=== PATIENT | female | born 1995 | race Caucasian/White ===

== ENCOUNTER → 2017-01-18 | Outpatient (CLI) | payer OTHER, MEDICAID ==
--- NOTE | 2017-01-25 15:40 | Diagnostic Imaging Report ---
INDICATION: anatomical survey. TECHNIQUE: Multiple real-time grayscale images were obtained over the gravid uterus. COMPARISON: None. FINDINGS: Single live intrauterine is demonstrated at 21 weeks 6 days by today's sonographic measurements. EDC by today's ultrasound is 05/25/2017. presentation is breech. Normal amniotic fluid index. Grade 1 placenta is located posteriorly with no placenta previa. heart rate measures 155 beats per minute. Good visualization of the kidneys, bladder, stomach, brain, four-chamber heart, three-vessel cord and insertion, spine, and extremities. The cervix measures 4.2 cm in length. gender is male. Biometrical measurements are as follows: Biparietal 5.30 cm, age 22 weeks 1 days. Head circumference 19.88 cm, age 22 weeks 1 days. Abdominal circumference 16.52 cm, age 21 weeks 4 days. Femur length 3.49 cm, age 21 weeks 1 days. Sonographic estimate age: 21 weeks 6 days. Sonographic estimated date of delivery: 05/25/2017. Estimated Weight: 422 gm (+/- 62 gm). LMP percentile: 43%. heart rate: 155 beats per minute. Cervical length: 4.2 cm. number: 1 of 1. IMPRESSION: Single live intrauterine at 21 weeks 6 days by sonographic measurements. Normal anatomical survey. Dictated by: Dictated on workstation # [id number]
== END ==
LOC: RAD 14:21
PROVIDERS: ATTEND Obstetrics & Gynecology
DX: O46.92 Antepartum hemorrhage, unspecified, second trimester (principal); Z3A.00 Weeks of gestation of pregnancy not specified

== ENCOUNTER → 2020-02-12 | Outpatient (CLI) | payer BC ==
--- NOTE | 2020-02-12 12:05 | Diagnostic Imaging Report ---
PATIENT HISTORY: CHEST WALL pain. TECHNIQUE: Two views of the chest. COMPARISON: None FINDINGS: The lung volumes are normal. No focal consolidation is seen. No large pleural effusion or pneumothorax is seen. The cardiomediastinal silhouette is normal in size and contour. No acute osseous abnormality is seen. IMPRESSION: No acute pulmonary abnormality seen. Dictated by: Dictated on workstation # [id number]
--- NOTE | 2020-02-12 12:06 | Diagnostic Imaging Report ---
HISTORY: Shoulder and neck pain. TECHNIQUE: 3 views of the cervical spine. COMPARISON: None FINDINGS: Vertebral body heights are preserved. Disc heights are preserved. No acute fracture is seen. Alignment appears normal. Prevertebral soft tissues appear normal. C1-C2 alignment is normal. IMPRESSION: 1. No acute or significant osseous abnormality is seen in the cervical spine. Dictated by: Dictated on workstation # [id number]
== END ==
LOC: RAD FS 11:40
PROVIDERS: ATTEND Nurse Practitioner Family
DX: R20.2 Paresthesia of skin (principal); M25.519 Pain in unspecified shoulder; M54.2 Cervicalgia; R20.0 Anesthesia of skin; R07.89 Other chest pain
CPT/HCPCS: 71046; 72040

== ENCOUNTER → 2020-04-07 | Outpatient (CLI) | payer BC ==
--- NOTE | 2020-04-07 16:44 | Diagnostic Imaging Report ---
INDICATION: Chronic left wrist pain. The patient has history of ganglion cyst. TIME OF EXAM: 3:10 PM 3 views of the left wrist were obtained. Distal radius and ulna are intact. The carpus is intact. Metacarpals are unremarkable. No fractures are seen. IMPRESSION: No acute bony abnormality is detected. Dictated by: Dictated on workstation # [id number]
== END ==
LOC: RAD FS 14:37
PROVIDERS: ATTEND Nurse Practitioner
DX: M25.532 Pain in left wrist (principal); G89.29 Other chronic pain
CPT/HCPCS: 73110

== ENCOUNTER 2020-06-16 17:47 | Emergency (ER) | payer BC ==
[~2020-06-16] VITALS: Ht 160 cm; Wt 83.0 kg
--- NOTE | 2020-06-16 18:03 | ED Abdominal Pain ---
General Chief Complaint: OB < 20 WEEKS Stated Complaint: NAUSEA,HEADACHE Source of Information: Patient Exam Limitations: No Limitations History of Present Illness Date Seen by Provider: Jun 16, 2020 Time Seen by Provider: 18:03 Initial Comments 24-year-old multipara at 9 weeks presents to the ER ambulatory with complaint of nausea and vomiting persistent and unable to hold anything down for the past several weeks. States she's lost 6 pounds during this . Has seen her OB and was told to take [id number] B6 and Unisom, the patient has not taken it because it makes her too tired. Has an appointment to see her OB tomorrow. Denies abdominal pain or cramping, denies vaginal bleeding. Allergies and Home Medications Allergies Coded Allergies: No Allergy Information Available (Unverified , 06/16/20) Patient Home Medication List Home Medication List Reviewed: Yes Review of Systems Review of Systems Constitutional: No chills, No dizziness, No fever; malaise; No weakness Respiratory: Denies Cough, Denies Shortness of Air Cardiovascular: Denies Chest Pain, Denies Edema Gastrointestinal: Denies Abdominal Pain, Denies Constipated, Denies Diarrhea, Denies Difficulty Swallowing; Nausea, Poor Appetite, Vomiting Genitourinary: Denies Flank Pain, Denies Pain, Denies Urgency Musculoskeletal: No back pain, No joint pain Skin: No change in color, No rash Past Qqijgrf-Yapkdy-Owosbg Hx Past Med/Social Hx: Reviewed Nursing Past Med/Soc Hx Patient Social History Recent Foreign Travel: No Contact w/Someone Who Travel: No Physical Exam Vital Signs Vital Signs - First Documented 06/16/20 17:50 Temp 36.5 Pulse 87 Resp 16 B/P (MAP) 126/87 (100) Pulse Ox 98 O2 Delivery Room Air Capillary Refill : Height/Weight/BMI Height: '" Weight: lbs. oz. kg; BMI Method: General Appearance: WD/WN, no apparent distress Respiratory: chest non-tender, lungs clear Cardiovascular: regular rate, rhythm, no edema Gastrointestinal: non tender, soft Neurologic/Psychiatric: alert, normal mood/affect Skin: normal color, warm/dry Progress/Results/Core Measures Results/Orders My Orders Orders - ROVENSTINEPEYTON DO Ns Iv 1000 Ml (Sodium Chloride 0.9%) (06/16/20 18:15) Vital Signs/I&O 06/16/20 17:50 Temp 36.5 Pulse 87 Resp 16 B/P (MAP) 126/87 (100) Pulse Ox 98 O2 Delivery Room Air Departure Impression Primary Impression: Hyperemesis gravidarum Disposition: 01 HOME, SELF-CARE Condition: Improved Departure-Patient Inst. Referrals: CURLY SUAREZ APRN (PCP) Primary Care Physician GEORGE LONG DO (Family) Primary Care Physician Patient Instructions: Nausea and Vomiting of (DC) Add. Discharge Instructions: Keep your appointment to see your OB tomorrow as scheduled. All discharge instructions reviewed with patient and/or family. Voiced understanding. PEYTON MILLER DO Jun 16, 2020 18:03
[2020-06-16] MEDS ORDERED: NS IV 1000 ML 1,000 ML IV SCH (18:15)
[2020-06-16 18:20] LABS: MEAN CORPUSCULAR HEMOGLOBIN 28 PG (25-34); WHITE BLOOD COUNT 10.6 10^3/uL (4.3-11.0)
[2020-06-16 18:21] LABS: BASOPHILS % (AUTO) 0 % (0-10); EOSINOPHILS # (AUTO) 0.1 10^3/uL (0.0-0.3); EOSINOPHILS % (AUTO) 1 % (0-10); HEMATOCRIT 38 % (35-52); LYMPHOCYTES # (AUTO) 2.4 X 10^3 (1.0-4.0); LYMPHOCYTES % (AUTO) 22 % (12-44); MEAN CORPUSCULAR HGB CONC 34 G/DL (32-36); MEAN CORPUSCULAR VOLUME 81 FL (80-99); MEAN PLATELET VOLUME 8.5 FL (7.4-10.4); MONOCYTES # (AUTO) 0.6 X 10^3 (0.0-1.0); MONOCYTES % (AUTO) 5 % (0-12); NEUTROPHILS # (AUTO) 7.5 X 10^3 (1.8-7.8); NEUTROPHILS % (AUTO) 71 % (42-75); PLATELET COUNT 376 10^3/uL (130-400)
[2020-06-16 18:32] LABS: ALANINE AMINOTRANSFERASE 10 U/L (0-55); ALBUMIN 4.4 GM/DL (3.2-4.5); ALKALINE PHOSPHATASE 68 U/L (40-136); BILIRUBIN,TOTAL 0.4 MG/DL (0.1-1.0); BUN/CREATININE RATIO 7; CALCIUM 9.3 MG/DL (8.5-10.1); CARBON DIOXIDE 23 MMOL/L (21-32); CHLORIDE 100 MMOL/L (98-107); CREATININE SERUM 0.57 MG/DL (0.60-1.30); GFR ESTIMATED > 60; GLUCOSE 93 MG/DL (70-105); POTASSIUM 4.1 MMOL/L (3.6-5.0); SODIUM 134 MMOL/L (135-145); TOTAL PROTEIN 7.3 GM/DL (6.4-8.2)
--- NOTE | 2020-06-16 18:47 | NUR ---
PT HAS APPX 400CC FLUIDS LEFT. REPORT GIVEN TO STEFAN ANTHONY.
[2020-06-16 19:15] VITALS: BP 118/82
== END 2020-06-16 19:15 | disposition home or self-care (01) ==
LOC: EDUNIT# 17:47 → ER FS 17:49
DX: O21.0 Mild hyperemesis gravidarum (principal); Z3A.09 9 weeks gestation of pregnancy
CPT/HCPCS: 36415; 80053; 85025

== ENCOUNTER 2020-07-26 13:14 | Emergency (ER) | payer BC, MEDICAID ==
[~2020-07-26] VITALS: Ht 160 cm; Wt 82.5 kg
[2020-07-26 13:46] LABS: BILIRUBIN,URINE NEGATIVE (NEGATIVE); CLARITY,URINE CLEAR; COLOR,URINE YELLOW; GLUCOSE, URINE (UA) NEGATIVE (NEGATIVE); KETONES,URINE NEGATIVE (NEGATIVE); LEUKOCYTE ESTERASE ,URINE NEGATIVE (NEGATIVE); NITRITE,URINE NEGATIVE (NEGATIVE); PH,URINE 6.5 (5-9); PROTEIN,URINE NEGATIVE (NEGATIVE)
[2020-07-26 13:55] LABS: BACTERIA,URINE MODERATE /HPF
--- NOTE | 2020-07-26 14:01 | ED GU-Female ---
General Chief Complaint: Female Reproductive Stated Complaint: CRAMPING, SPOTTING 15 WKS Source: patient Exam Limitations: no limitations History of Present Illness Date Seen by Provider: Jul 26, 2020 Time Seen by Provider: 13:45 Initial Comments Here with report of abdominal cramping and noting blood on the toilet tissue when she wipes. Does report that she currently has yeast infection and has started treatment for that. She called her process development technician, Dr. Long, who recommended follow-up in the ER in case there was something else going on. Patient does have vaginal discharge and states it is consistent with her almost monthly yeast infection. Last sexually active 5 days ago without pain. Denies nausea or vomiting. Denies persistent bleeding. Does have some vaginal irritation and burning with urination. Timing/Duration: yesterday, getting worse Severity/Quality: mild, moderate Location: vaginal Radiation: vaginal Activities at Onset: none Sexual [place] History: less than 2 months ago, single partner Modifying Factors: Worsens With Urinating Associated Symptoms: dysuria; No lower back pain Allergies and Home Medications Allergies Coded Allergies: No Allergy Information Available (Unverified , 06/16/20) Patient Home Medication List Home Medication List Reviewed: Yes Review of Systems Review of Systems Constitutional: see HPI; No chills, No fever Respiratory: no symptoms reported Cardiovascular: no symptoms reported Gastrointestinal: see HPI Genitourinary: see HPI : Yes Past Bdypujs-Withju-Lamaqj Hx Past Med/Social Hx: Reviewed Nursing Past Med/Soc Hx Patient Social History Alcohol Use: Denies Use Recreational Drug Use: No Smoking Status: Never a Smoker Recent Foreign Travel: No Contact w/Someone Who Travel: No Recent Hopitalizations: No Past Medical History Surgeries: Yes Section, Tonsillectomy Respiratory: No Neurological: No Genitourinary: No Gastrointestinal: No Musculoskeletal: No Endocrine: No HEENT: No Cancer: No Psychosocial: No Integumentary: No Family Medical History Reviewed Nursing Family Hx Physical Exam Vital Signs Vital Signs - First Documented 07/26/20 13:28 Temp 35.6 Pulse 93 Resp 20 B/P (MAP) 139/75 (96) Pulse Ox 98 O2 Delivery Room Air Capillary Refill : Height, Weight, BMI Height: '" Weight: lbs. oz. kg; 32.00 BMI Method: General Appearance: WD/WN, no apparent distress Cardiovascular: regular rate, rhythm, no murmur Respiratory: lungs clear, normal breath sounds Gastrointestinal: non tender, soft, other (Gravid) Extremities: non-tender, normal inspection Neurologic/Psychiatric: alert, oriented x 3 Skin: normal color, warm/dry Progress/Results/Core Measures Suspected Sepsis SIRS Temperature: Pulse: Respiratory Rate: Laboratory Tests 07/26/20 13:59: White Blood Count 9.7 Blood Pressure / Mean: Laboratory Tests 07/26/20 13:59: Platelet Count 291 Results/Orders Lab Results Laboratory Tests Test 07/26/20 13:30 07/26/20 13:59 Range/Units Urine Color YELLOW Urine Clarity CLEAR Urine pH 6.5 5-9 Urine Specific [place] <=1.005 1.016-1.022 Urine Protein NEGATIVE NEGATIVE Urine Glucose (UA) NEGATIVE NEGATIVE Urine Ketones NEGATIVE NEGATIVE Urine Nitrite NEGATIVE NEGATIVE Urine Bilirubin NEGATIVE NEGATIVE Urine Urobilinogen 0.2 < = 1.0 MG/DL Urine Leukocyte Esterase NEGATIVE NEGATIVE Urine RBC (Auto) NEGATIVE NEGATIVE Urine RBC NONE /HPF Urine WBC NONE /HPF Urine Squamous Epithelial Cells 10-25 H /HPF Urine Crystals NONE /LPF Urine Bacteria MODERATE H /HPF Urine Casts NONE /LPF Urine Mucus NEGATIVE /LPF Urine Culture Indicated NO White Blood Count 9.7 4.3-11.0 10^3/uL Red Blood Count 4.75 3.80-5.11 10^6/uL Hemoglobin 13.1 11.5-16.0 g/dL Hematocrit 40 35-52 % Mean Corpuscular Volume 83 80-99 fL Mean Corpuscular Hemoglobin 28 25-34 pg Mean Corpuscular Hemoglobin Concent 33 32-36 g/dL Red Cell Distribution Width 13.5 10.0-14.5 % Platelet Count 291 130-400 10^3/uL Mean Platelet Volume 8.4 L 9.0-12.2 fL Immature Granulocyte % (Auto) 0 % Neutrophils (%) (Auto) 72 42-75 % Lymphocytes (%) (Auto) 21 12-44 % Monocytes (%) (Auto) 5 0-12 % Eosinophils (%) (Auto) 2 0-10 % Basophils (%) (Auto) 0 0-10 % Neutrophils # (Auto) 7.0 1.8-7.8 10^3/uL Lymphocytes # (Auto) 2.0 1.0-4.0 10^3/uL Monocytes # (Auto) 0.5 0.0-1.0 10^3/uL Eosinophils # (Auto) 0.2 0.0-0.3 10^3/uL Basophils # (Auto) 0.0 0.0-0.1 10^3/uL Immature Granulocyte # (Auto) 0.0 0.0-0.1 10^3/uL My Orders Orders - COLETTE MORRISON MD Cbc With Automated Diff (07/26/20 13:41) Abo Rh Type (07/26/20 13:41) Ua Culture If Indicated (07/26/20 13:41) Us Limited [id number] (07/26/20 13:41) Vital Signs/I&O 07/26/20 07/26/20 13:28 15:23 Temp 35.6 35.6 Pulse 93 93 Resp 20 20 B/P (MAP) 139/75 (96) 120/65 (96) Pulse Ox 98 98 O2 Delivery Room Air Capillary Refill : Progress Note : Progress Note Seen and evaluated. Labs and UA ordered. Ultrasound will be ordered. Monitor patient. 1514: Ultrasound shows fetus at 14-6/7 with heart rate of 147. Blood type is a positive. I believe the bleeding is likely from the known vaginal yeast infection and she has treatment available for that. She feels more comfortable now. Discharged home with return precautions. Patient verbalized understanding of instructions and agreement with plan. Diagnostic Imaging Diagonstic Imaging: Ultrasound Plain Films/CT/US/NM/MRI: pelvis Comments [facility], [place] NAME: [facility] REC#: [id number] PT STATUS: DEP ER : 1995 PHYSICIAN: COLETTE MORRISON MD ADMIT DATE: 07/26/20/ER Signed Date of Exam:07/26/20 US LIMITED [id number] EXAM: Limited ultrasound. EXAM DATE: 07/26/2020 COMPARISON: None. HISTORY: Cramping and bleeding. TECHNIQUE: Multiple sonographic images of the pelvis were obtained in transabdominal fashion. FINDINGS: The placenta is anterior with the inferior margin of the placenta abutting the cervical os. heart rate is detected and measures 147 bpm. A single uterine gestation is visualized. IMPRESSION: Anterior placenta abutting the internal cervical os compatible with placenta previa. Dictated by: Dictated on workstation # [id number] Dict: 07/26/201724 Trans: 07/26/201735 [facility] [id number] Interpreted by: JAYSHREE KAUFMAN DO Electronically signed by: JAYSHREE KAUFMAN DO 07/26/201735 Departure Impression Primary Impression: Vaginal bleeding during Additional Impression: Vaginal yeast infection Disposition: HOME, SELF-CARE Condition: Stable Departure-Patient Inst. Decision time for Depature: 15:18 Referrals: [facility] (PCP) Primary Care Physician CURLY SUAREZ APRN (Family) Primary Care Physician Patient Instructions: Threatened Miscarriage (DC), Vulvovaginal Yeast Infection Add. Discharge Instructions: All discharge instructions reviewed with patient and/or family. Voiced understanding. Take medications as previously prescribed. Follow-up with your doctor in a few days for recheck. Return for worse pain, fever, vomiting, weakness, breathing problems, bleeding greater than 2 pads per hour for more than 2 hours, weakness or other concerns as needed. Copy Copies To 1: GEORGE LONG TIMOTHY D MD Jul 26, 2020 14:01
[2020-07-26 14:07] LABS: BASOPHILS % (AUTO) 0 % (0-10); EOSINOPHILS # (AUTO) 0.2 10^3/uL (0.0-0.3); EOSINOPHILS % (AUTO) 2 % (0-10); HEMATOCRIT 40 % (35-52); HEMOGLOBIN 13.1 g/dL (11.5-16.0); LYMPHOCYTES % (AUTO) 21 % (12-44); MEAN CORPUSCULAR HEMOGLOBIN 28 pg (25-34); MEAN CORPUSCULAR HGB CONC 33 g/dL (32-36); MEAN CORPUSCULAR VOLUME 83 fL (80-99); MEAN PLATELET VOLUME 8.4 fL (9.0-12.2); MONOCYTES # (AUTO) 0.5 10^3/uL (0.0-1.0); MONOCYTES % (AUTO) 5 % (0-12); NEUTROPHILS % (AUTO) 72 % (42-75); PLATELET COUNT 291 10^3/uL (130-400); WHITE BLOOD COUNT 9.7 10^3/uL (4.3-11.0)
[2020-07-26 15:23] VITALS: BP 120/65
--- NOTE | 2020-07-26 17:34 | Diagnostic Imaging Report ---
EXAM: Limited ultrasound. EXAM DATE: 07/26/2020 COMPARISON: None. HISTORY: Cramping and bleeding. TECHNIQUE: Multiple sonographic images of the pelvis were obtained in transabdominal fashion. FINDINGS: The placenta is anterior with the inferior margin of the placenta abutting the cervical os. heart rate is detected and measures 147 bpm. A single uterine gestation is visualized. IMPRESSION: Anterior placenta abutting the internal cervical os compatible with placenta previa. Dictated by: Dictated on workstation # [id number]
== END 2020-07-26 15:23 | disposition home or self-care (01) ==
LOC: EDUNIT# 13:14 → ER 13:16
DX: O26.852 Spotting complicating pregnancy, second trimester (principal); O98.812 Other maternal infectious and parasitic diseases complicating pregnancy, second trimester; B37.3 Candidiasis of vulva and vagina; Z3A.15 15 weeks gestation of pregnancy
CPT/HCPCS: 36415; 76815; 81000; 85025; 86900; 86901

== ENCOUNTER → 2020-09-13 | Outpatient (CLI) | payer MEDICAID, OTHER ==
--- NOTE | 2020-09-13 16:36 | Diagnostic Imaging Report ---
INDICATION: survey. TECHNIQUE: Multiple real-time grayscale images were obtained over the gravid uterus. COMPARISON: 07/26/2020. FINDINGS: There is a single live fetus in a cephalic presentation. heart rate was recorded at 153 bpm. Placenta is anterior. Amniotic fluid index is 20.5 cm. survey demonstrates kidneys, bladder and stomach to be unremarkable. brain is unremarkable. There is a three-vessel cord with normal cord insertion. spine is unremarkable. Four-chamber heart views as well as LVOT and RVOT are limited due to movement. There is also suboptimal imaging of the nose and lips. Biometrical measurements are as follows: Biparietal 5.47 cm, age 22 weeks 5 days. Head circumference 19.70 cm, age 22 weeks 0 days. Abdominal circumference 16.51 cm, age 21 weeks 4 days. Femur length 3.82 cm, age 22 weeks 2 days. Sonographic estimate age: 22 weeks 1 days. Sonographic estimated date of delivery: 01/16/2021. Estimated Weight: 459 gm (+/- 67 gm). LMP percentile: 46%. heart rate: 153 beats per minute. number: 1 of 1. IMPRESSION: Single live IUP 22 weeks 1 day gestational age demonstrates normal interval growth when compared with prior exam. survey is unremarkable although the heart views were limited due to movement. Follow-up could be performed. Dictated by: Dictated on workstation # [id number]
== END ==
LOC: RAD 14:45
PROVIDERS: ATTEND Obstetrics & Gynecology
DX: Z34.92 Encounter for supervision of normal pregnancy, unspecified, second trimester (principal); Z3A.22 22 weeks gestation of pregnancy
CPT/HCPCS: 76805

== ENCOUNTER 2020-10-12 15:46 | Outpatient (CLI) | payer MEDICAID ==
[~2020-10-12] VITALS: Ht 160 cm; Wt 83.1 kg
[2020-10-12 16:10] VITALS: BP 133/72
[2020-10-12 16:23] LABS: BILIRUBIN,URINE NEGATIVE (NEGATIVE); CLARITY,URINE SL CLOUDY; COLOR,URINE YELLOW; GLUCOSE, URINE (UA) NEGATIVE (NEGATIVE); KETONES,URINE NEGATIVE (NEGATIVE); LEUKOCYTE ESTERASE ,URINE 2+ (NEGATIVE); NITRITE,URINE NEGATIVE (NEGATIVE); PROTEIN,URINE NEGATIVE (NEGATIVE)
[2020-10-12 16:31] LABS: AMORPHOUS SEDIMENT,UR MOD AMOR URATES /LPF; BACTERIA,URINE LARGE /HPF; WBC,URINE 25-50 /HPF
--- NOTE | 2020-10-14 08:04 | Physician Query-Final Dx ---
LISBET DAVIS 10/14/20 0804: Clinic Account Progress/Dx Physician Query: Please give diagnosis Please include # weeks gestation Date of Service Oct 12, 2020 at 15:46 DARIN DELONG MD 10/14/20 1526: Clinic Account Progress/Dx DIAGNOSIS: Diagnosis 26 weeks gestation with false labor LISBET DAVIS Oct 14, 2020 08:04 DARIN DELONG MD Oct 14, 2020 15:26
== END 2020-10-12 17:30 | disposition home or self-care (01) ==
LOC: WSo 15:46 → LDRP 15:51 → WSo 17:30
PROVIDERS: ATTEND Obstetrics & Gynecology
DX: O62.9 Abnormality of forces of labor, unspecified (principal); Z3A.00 Weeks of gestation of pregnancy not specified
CPT/HCPCS: 81000; 87088; G0463; 99213

== ENCOUNTER → 2020-10-17 | Outpatient (CLI) | payer MEDICAID ==
--- NOTE | 2020-10-17 08:46 | Diagnostic Imaging Report ---
INDICATION: Followup heart anatomy. TECHNIQUE: Multiple real-time grayscale images were obtained over the gravid uterus. COMPARISON: 09/13/2020. FINDINGS: There is a single live fetus in a cephalic presentation. heart rate was recorded at 134 bpm. Placenta is anterior. No previa is identified. Four-chamber heart view is visualized on today's study. IMPRESSION: Unremarkable limited obstetrical ultrasound demonstrating a normal four-chamber heart. Anterior placenta is unremarkable, without evidence of previa. Dictated by: Dictated on workstation # [id number]
== END ==
LOC: RAD FS 07:56
PROVIDERS: ATTEND Obstetrics & Gynecology
DX: Z36.2 Encounter for other antenatal screening follow-up (principal)
CPT/HCPCS: 76816

== ENCOUNTER 2020-11-16 18:04 | Outpatient (CLI) | payer MEDICAID ==
[~2020-11-16] VITALS: Ht 160 cm; Wt 96.0 kg
[2020-11-16 18:24] VITALS: BP 143/72
[2020-11-16 18:30] VITALS: BP 143/72
[2020-11-16 18:40] VITALS: BP 127/62
[2020-11-16 18:42] LABS: BILIRUBIN,URINE NEGATIVE (NEGATIVE); COLOR,URINE YELLOW; GLUCOSE, URINE (UA) NEGATIVE (NEGATIVE); KETONES,URINE NEGATIVE (NEGATIVE); LEUKOCYTE ESTERASE ,URINE 1+ (NEGATIVE); NITRITE,URINE NEGATIVE (NEGATIVE); PH,URINE 6.5 (5-9); PROTEIN,URINE NEGATIVE (NEGATIVE)
[2020-11-16 18:49] LABS: BACTERIA,URINE MODERATE /HPF; CLARITY,URINE SL CLOUDY; RBC,URINE RARE /HPF
[2020-11-16 18:54] VITALS: BP 113/59
[2020-11-16 19:00] VITALS: BP 127/62
--- NOTE | 2020-11-18 16:42 | Physician Query-Final Dx ---
Final Diagnosis Give Final Diagnosis Please give Final Diagnosis RUCHI OCHOA Nov 18, 2020 16:42
== END 2020-11-16 22:30 | disposition home or self-care (01) ==
LOC: WSo 18:04 → LDRP 18:04 → WSo 22:30
PROVIDERS: ATTEND Obstetrics & Gynecology
DX: O9A.213 Injury, poisoning and certain other consequences of external causes complicating pregnancy, third trimester (principal); Z3A.31 31 weeks gestation of pregnancy
CPT/HCPCS: 81000; 87088; G0463; 99213

== ENCOUNTER 2021-01-04 05:41 | Outpatient (CLI) | payer MEDICAID ==
[~2021-01-04] VITALS: Ht 160 cm; Wt 97.7 kg
[2021-01-04] MEDS ORDERED: PREN-8 PO (16:15)
== END 2021-01-04 16:20 ==
LOC: PREOP 05:41
PROVIDERS: ATTEND Obstetrics & Gynecology
DX: Z01.818 Encounter for other preprocedural examination (principal); O34.219 Maternal care for unspecified type scar from previous cesarean delivery

== ENCOUNTER 2021-01-11 10:54 | Inpatient (IN) | payer MEDICAID ==
[2021-01-11] VITALS (11 sets, daily range): BP systolic 100–126; BP diastolic 55–91
[~2021-01-11 10:54] MED LIST: PREN-8 PO
--- NOTE | 2021-01-11 11:58 | History & Physical-OB ---
OB - Chief Complaint & HPI Date/Time Date of Admission: Date of Admission: January 11, 2021 at 10:54 Date seen by a Provider: January 11, 2021 Time Seen by a Provider: 11:45 Chief Complaint/History OB-Reason for Admission/Chief: Section Hx : 2 Hx Para: 1 Expected Date of Delivery: January 18, 2021 Gestational Age in Weeks: 39 Gestational Age in Days: 0 Indication for : desires repeat Admission Nurse Assessment Rev: Yes History of Labs A +/- HIV - HbSAg - Hep C - RPR NR GBS - Other Requests repeat CS. uncomplicated Allergies and Home Medications Allergies Coded Allergies: No Known Drug Allergies (Unverified , 01/04/21) Home Medications Vit W-Ca,Fe,FA(<1 mg) 1 Each Tablet, 1 EACH PO DAILY, (Reported) Patient Home Medication List Home Medication List Reviewed: Yes OB - History Hx of Present Ultrasounds: Normal mid trimester US Obstetrical Complications: None Medical Complications: None Information Induced Hypertension: No Maternal Gestational Diabetes: No Hemorrhage: No Obstetrical History Hx : 2 Hx Para: 1 Hx # Term Pregnancies: 1 Hx # Pregnancies: 0 Number of Living Children: 1 Hx Termination: No Hx Multiple Gestation: No Hx Ectopic : No Hx Stillbirth: No Hx Complication: No Hx Induced Hypertens: No Hx Maternal Gestational Diabet: No Hx Hemorrhage: No Delivery History Hx Dystocia: Yes Hx Forceps Assisted Delivery: No Hx Vacuum Extraction Assisted: No Hx Placenta Abnormality: No Hx Distress: No Hx Section: Yes Patient Past Medical History [place] Social History/Family History Alcohol Use: Denies Use Recreational Drug Use: No Smoking Cessation: Never smoker 2nd Hand Smoke Exposure: No Immunizations Tetanus Booster (TDap): Less than 5yrs Date of Influenza Vaccine: May 26, 2019 Rubella: immune RPR/VDRL: Negative GBS Status: Negative HBsAG: Negative OB - Admission Exam Physical Exam Vitals: See RN chart Heart: Rhythm Normal Lungs: Clear Extremities: Normal Reflexes: Normal Heart Rate: 140's Accelerations: Accelerations Present Decelerations: No Decelerations Short Term Variability: Present Nursing Executive Variability: Average (6-25) Contractions on Admission: 6-10 Minutes Apart OB - Assessment/Plan/Diagnosis Assessment Assessment: section Admission Dx 1. Plan repeat section today Risks of bleeding, infection, injury to bowel, bladder and ureter. Prophylactic antibiotics and SCDs will be used Chart states Latex allergy, but by history and interviewing patient, she has irritation from adhesives. Admission Status: Inpatient Order (span 2 midnights) Reason for Inpatient Admission: section Plan Plan: Section GEORGE LONG DO January 11, 2021 11:57
[2021-01-11] MEDS ORDERED: LACTATED RINGERS 1,000 ML IV PRN (12:00)
[2021-01-11] MEDS ORDERED: METOCLOPRAMIDE INJ 10 MG/2 ML (REGLAN) ONE (12:00)
[2021-01-11] MEDS ORDERED: METOCLOPRAMIDE INJ 10 MG/2 ML (REGLAN) IV ONE (12:00)
[2021-01-11] MEDS ORDERED: FAMOTIDINE 20MG/2ML IV (PEPCID) ONE (12:00)
[2021-01-11] MEDS ORDERED: FAMOTIDINE 20MG/2ML IV (PEPCID) IV ONE (12:00)
[2021-01-11] MEDS ORDERED: LACTATED RINGERS 1,000 ML IV ONE (12:00)
[2021-01-11] MEDS ORDERED: CITRIC ACID/SOB CIT (BICITRA) 30 ML UDC PO ONE (12:00)
[2021-01-11] MEDS ORDERED: CITRIC ACID/SOB CIT (BICITRA) 30 ML UDC ONE (12:00)
[2021-01-11] MEDS ORDERED: ceFAZolin 2 GM IV Premixed 50 ML IV ONE (12:00)
[2021-01-11 12:02] LABS: BILIRUBIN,URINE NEGATIVE (NEGATIVE); CLARITY,URINE CLEAR; COLOR,URINE YELLOW; GLUCOSE, URINE (UA) NEGATIVE (NEGATIVE); KETONES,URINE NEGATIVE (NEGATIVE); LEUKOCYTE ESTERASE ,URINE 1+ (NEGATIVE); NITRITE,URINE NEGATIVE (NEGATIVE); PROTEIN,URINE NEGATIVE (NEGATIVE)
[2021-01-11 12:03] LABS: BASOPHILS % (AUTO) 0 % (0-10); EOSINOPHILS # (AUTO) 0.1 10^3/uL (0.0-0.3); EOSINOPHILS % (AUTO) 1 % (0-10); HEMATOCRIT 37 % (35-52); HEMOGLOBIN 12.1 g/dL (11.5-16.0); LYMPHOCYTES # (AUTO) 1.6 10^3/uL (1.0-4.0); LYMPHOCYTES % (AUTO) 15 % (12-44); MEAN CORPUSCULAR HEMOGLOBIN 27 pg (25-34); MEAN CORPUSCULAR HGB CONC 33 g/dL (32-36); MEAN CORPUSCULAR VOLUME 82 fL (80-99); MEAN PLATELET VOLUME 9.2 fL (9.0-12.2); MONOCYTES # (AUTO) 0.5 10^3/uL (0.0-1.0); MONOCYTES % (AUTO) 5 % (0-12); NEUTROPHILS # (AUTO) 8.1 10^3/uL (1.8-7.8); NEUTROPHILS % (AUTO) 79 % (42-75); PLATELET COUNT 249 10^3/uL (130-400); WHITE BLOOD COUNT 10.3 10^3/uL (4.3-11.0)
[2021-01-11] MEDS ORDERED: fentaNYL INJ 100 MCG/2 ML AMP ONE (12:04)
[2021-01-11] MEDS ORDERED: OXYTOCIN PRE-MIX DRIP 1,000 ML IV ONE (12:04)
[2021-01-11] MEDS ORDERED: PHENYLEPHRINE 100 MCG/ML 10 ML (ANESTHESIA) SYR ONE (12:25)
[2021-01-11 12:34] LABS: BACTERIA,URINE MODERATE /HPF
[2021-01-11] MEDS ORDERED: BUPIVACAINE 0.5% 30 ML (SENSORCAINE) VIAL ONE (12:49)
--- NOTE | 2021-01-11 13:18 | Cesarean Section Operative ---
Procedure Procedure Note Pre-operative Diagnosis: Lucía Leon is a 25 /Para 2 / 1,Gestational Age 39 weeks with history of previous section Post-operative Diagnosis: same Procedure: Primary low transverse section Physician: GEORGE LONG Esol Teacher: Benjie Winter MS III Estimated blood loss: 500 mL Disposition: stable Findings: Viable male , Apgars 8/9, weight 8#9 oz, intact placenta, 3vc, normal appearing uterus, tubes, and ovaries. Indications:Lucía Leon is a 25 /Para 2 / 1,Gestational Age 39 weeks with history of previous section Procedure Details: The patient was seen in pre-op and the procedure was discussed with the patient in full, including the risks, benefits, and alternatives. All questions were answered. The patient was taken to the operating room and a time out was performed, verifying patient and procedure. After spinal anesthesia was placed by our anesthesia colleagues, the patient was placed in the dorsal supine with leftward tilt for uterine displacement.~ Her abdomen was then prepped and draped in the typical sterile fashion. A Pfannenstiel skin incision was made using a scalpel and carried down through the underlying fascia. The fascia was incised in the midline and tented up using Aaron clamps. On both the inferior and superior fascia side the rectus muscle was dissected off bluntly and sharply using Skaggs scissors. The peritoneum was identified and entered bluntly in the midline. This was then stretched laterally using manual strength. After entering the abdominal cavity and confirming lack of intraperitoneal adhesions, a large Chuy retractor was placed and the lower uterine segment was visualized. A bladder flap was created with the use of Metzenbaum scissors.~ A scalpel was utilized to make a low transverse uterine incision. Amniotomy was performed with an Allis clamp with return of clear fluid. The infant's head was grasped and brought to the level of the incision. Fundal pressure was applied and was delivered without difficulty. Mouth and nares were suctioned with bulb suction. After the umbilical cord was clamped and cut, the infant was handed off to the pediatric staff. A sample of cord blood was then obtained. The placenta was delivered intact via uterine massage. The uterus was exteriorized and cleared of all clots and debris. The uterine incision was closed using 0 Vicryl in a running locked fashion. A second imbricated layer was placed using 0 Vicryl in a running fashion as well. The uterus was flexed forward and the posterior rectouterine space was inspected and cleared of all clots and debris. Again the hysterotomy site was examined and hemostasis was observed. The bilateral tubes and ovaries appeared normal. The uterus was placed back into the abdominal cavity and abdominal gutters were cleared of all clots and debris. A final check of the uterine incision showed it to be hemostatic. The peritoneum was closed using 3-0 Vicryl in a running fashion. The fascia was closed with 0 Vicryl in a running fashion. The subcutaneous space was hemostatic, and irrigated. The subcutaneous space was closed with 3-0 Vicryl in several single interrupted stitches. The skin was then closed using 4-0 Monocryl in a running subcuticular fashion. The skin edges were reapproximated together and were hemostatic. A pressure dressing was applied. All sponge, lap and needle counts were correct at the end of the procedure per nursing. Vitals - Labs Labs Laboratory Tests 01/11/21 11:00: White Blood Count 10.3, Red Blood Count 4.48, Hemoglobin 12.1, Hematocrit 37, Mean Corpuscular Volume 82, Mean Corpuscular Hemoglobin 27, Mean Corpuscular Hemoglobin Concent 33, Red Cell Distribution Width 14.3, Platelet Count 249, Mean Platelet Volume 9.2, Immature Granulocyte % (Auto) 1, Neutrophils (%) (Auto) 79H, Lymphocytes (%) (Auto) 15, Monocytes (%) (Auto) 5, Eosinophils (%) (Auto) 1, Basophils (%) (Auto) 0, Neutrophils # (Auto) 8.1H, Lymphocytes # (Auto) 1.6, Monocytes # (Auto) 0.5, Eosinophils # (Auto) 0.1, Basophils # (Auto) 0.0, Immature Granulocyte # (Auto) 0.1, Urine Color YELLOW, Urine Clarity CLEAR, Urine pH 7.0, Urine Specific [place] 1.020, Urine Protein NEGATIVE, Urine Glucose (UA) NEGATIVE, Urine Ketones NEGATIVE, Urine Nitrite NEGATIVE, Urine Bilirubin NEGATIVE, Urine Urobilinogen 0.2, Urine Leukocyte Esterase 1+H, Urine RBC (Auto) TRACE-I, Urine RBC 2-5H, Urine WBC 5-10H, Urine Squamous Epithelial Cells 10-25H, Urine Crystals NONE, Urine Bacteria MODERATEH, Urine Casts NONE, Urine Mucus NEGATIVE, Urine Culture Indicated YES GEORGE LONG DO January 11, 2021 13:18
[2021-01-11] MEDS ORDERED: OXYTOCIN PRE-MIX DRIP 500 ML IV ONE (14:35)
[2021-01-11] MEDS ORDERED: MEASLES,MUMPS,RUBELLA 1 EA INJ SC SCH (16:00)
[2021-01-11] MEDS ORDERED: OXYTOCIN PRE-MIX DRIP 500 ML IV SCH (16:00)
[2021-01-11] MEDS ORDERED: KETOROLAC 30 MG/ML VIAL ONE (16:38)
[2021-01-11] MEDS: KETOROLAC 30 MG/ML VIAL IV SCH ×2 (16:52→23:36)
[2021-01-11] MEDS: ACETAMINOPHEN 500 MG TAB (TYLENOL) PO SCH (18:25)
[2021-01-11] MEDS: DOCUSATE SODIUM 100 MG (COLACE) CAP PO SCH (21:03)
[2021-01-11] MEDS ORDERED: CATHETER FLUSH 10 ML SYR IV SCH (22:00)
[2021-01-12] VITALS (7 sets, daily range): BP systolic 113–138; BP diastolic 58–76
[2021-01-12] MEDS: ACETAMINOPHEN 500 MG TAB (TYLENOL) PO SCH ×4 (00:50→20:25)
[2021-01-12] MEDS: KETOROLAC 30 MG/ML VIAL IV SCH (05:26)
[2021-01-12 05:40] LABS: BASOPHILS % (AUTO) 0 % (0-10); EOSINOPHILS # (AUTO) 0.1 10^3/uL (0.0-0.3); EOSINOPHILS % (AUTO) 1 % (0-10); HEMATOCRIT 32 % (35-52); HEMOGLOBIN 10.3 g/dL (11.5-16.0); LYMPHOCYTES # (AUTO) 1.6 10^3/uL (1.0-4.0); LYMPHOCYTES % (AUTO) 17 % (12-44); MEAN CORPUSCULAR HEMOGLOBIN 27 pg (25-34); MEAN CORPUSCULAR HGB CONC 32 g/dL (32-36); MEAN CORPUSCULAR VOLUME 83 fL (80-99); MONOCYTES # (AUTO) 0.6 10^3/uL (0.0-1.0); MONOCYTES % (AUTO) 6 % (0-12); NEUTROPHILS # (AUTO) 6.9 10^3/uL (1.8-7.8); NEUTROPHILS % (AUTO) 75 % (42-75); PLATELET COUNT 210 10^3/uL (130-400); WHITE BLOOD COUNT 9.3 10^3/uL (4.3-11.0)
[2021-01-12] MEDS: DOCUSATE SODIUM 100 MG (COLACE) CAP PO SCH ×2 (10:35→20:25)
[2021-01-12] MEDS ORDERED: IBUPROFEN 600 MG (MOTRIN) TAB PO ONE (12:18)
[2021-01-12] MEDS: IBUPROFEN 600 MG (MOTRIN) TAB PO SCH ×3 (12:29→23:39)
--- NOTE | 2021-01-12 13:10 | Anesthesia-Regional Post-Op ---
Regional Patient Condition Mental Status: Alert, Oriented x3 Circulation: Same as Pre-Op Headache: Absent Sensation: Full Recovery Motor Block: Absent Post Op Complications Complications None Follow Up Care/Instructions Patient Instructions None needed. Anesthesia/Patient Condition Patient is doing well, no complaints, stable vital signs, no apparent adverse anesthesia problems. No complications reported per nursing. SUSAN PRADHAN CRNA January 12, 2021 13:10
[2021-01-13] MEDS: ACETAMINOPHEN 500 MG TAB (TYLENOL) PO SCH ×2 (03:56→10:01)
[2021-01-13 04:00] VITALS: BP 120/69
[2021-01-13] MEDS: IBUPROFEN 600 MG (MOTRIN) TAB PO SCH (06:31)
[2021-01-13 08:36] VITALS: BP 124/74
[2021-01-13] MEDS: DOCUSATE SODIUM 100 MG (COLACE) CAP PO SCH (08:38)
--- NOTE | 2021-01-13 08:41 | Postpartum Progress Note ---
Post Op Post-operative Day #2 s/p RLTCS Subjective: Patient is without complaints. Ambulating, voiding after galvez removed. Tolerating a regular diet without nausea or vomiting. Normal lochia. Pain is well controlled with oral pain medications. Passing flatus. breast feeding. [] Objective: 01/13/21 01/13/21 04:00 08:36 Temp 36.4 36.7 Pulse 94 77 Resp 18 18 B/P (MAP) 120/69 (86) 124/74 (91) Pulse Ox 98 98 O2 Delivery Room Air Physical Exam: General - Alert and oriented, no apparent distress Abdomen - Soft, appropriately tender to palpation, non-distended, fundus firm at umbilicus Incision - clean, dry and intact; no erythema or induration, no drainage Extremities - no edema, negative Jeana's bilaterally [] Assessment: [] post-operative day # [], status post []. Recovering well, hemodynamically stable Acute blood loss anemia [] Plan: Routine post-operative care. Encourage breast feeding. Encourage ambulation. VTE prophylaxis: SCDs. Ferrous sulfate supplementation. Plan for discharge [] Vitals - Labs Vital Signs - I&O Vital Signs Date Time Temp Pulse Resp B/P (MAP) Pulse Ox O2 Delivery O2 Flow Rate FiO2 01/13/21 08:36 36.7 77 18 124/74 (91) 98 Room Air 01/13/21 04:00 36.4 94 18 120/69 (86) 98 01/12/21 20:20 36.5 93 18 118/67 (84) 98 01/12/21 18:15 36.5 90 18 120/76 (91) 98 Room Air 01/12/21 12:30 36.7 97 18 113/64 (80) Labs Microbiology 01/11/21 Urine Culture - Final, Complete Gram Pos Mixed Bacterial Avis GEORGE LONG DO January 13, 2021 08:41
--- NOTE | 2021-01-13 08:41 | Postpartum Progress Note ---
Post Op Late entry due to computer problem 01/12/2021 0845 Post-operative Day #1 Subjective: Patient is without complaints. Ambulating, voiding after galvez removed. Tolerating a regular diet without nausea or vomiting. Normal lochia. Pain is well controlled with oral pain medications. Passing flatus. breast feeding. Objective: Laboratory Tests Test 01/11/21 11:00 01/12/21 05:20 Range/Units White Blood Count 10.3 9.3 4.3-11.0 10^3/uL Red Blood Count 4.48 3.89 3.80-5.11 10^6/uL Hemoglobin 12.1 10.3 L 11.5-16.0 g/dL Hematocrit 37 32 L 35-52 % Mean Corpuscular Volume 82 83 80-99 fL Mean Corpuscular Hemoglobin 27 27 25-34 pg Mean Corpuscular Hemoglobin Concent 33 32 32-36 g/dL Red Cell Distribution Width 14.3 14.2 10.0-14.5 % Platelet Count 249 210 130-400 10^3/uL Mean Platelet Volume 9.2 9.0 9.0-12.2 fL Immature Granulocyte % (Auto) 1 1 % Neutrophils (%) (Auto) 79 H 75 42-75 % Lymphocytes (%) (Auto) 15 17 12-44 % Monocytes (%) (Auto) 5 6 0-12 % Eosinophils (%) (Auto) 1 1 0-10 % Basophils (%) (Auto) 0 0 0-10 % Neutrophils # (Auto) 8.1 H 6.9 1.8-7.8 10^3/uL Lymphocytes # (Auto) 1.6 1.6 1.0-4.0 10^3/uL Monocytes # (Auto) 0.5 0.6 0.0-1.0 10^3/uL Eosinophils # (Auto) 0.1 0.1 0.0-0.3 10^3/uL Basophils # (Auto) 0.0 0.0 0.0-0.1 10^3/uL Immature Granulocyte # (Auto) 0.1 0.1 0.0-0.1 10^3/uL Urine Color YELLOW Urine Clarity CLEAR Urine pH 7.0 5-9 Urine Specific [place] 1.020 1.016-1.022 Urine Protein NEGATIVE NEGATIVE Urine Glucose (UA) NEGATIVE NEGATIVE Urine Ketones NEGATIVE NEGATIVE Urine Nitrite NEGATIVE NEGATIVE Urine Bilirubin NEGATIVE NEGATIVE Urine Urobilinogen 0.2 < = 1.0 MG/DL Urine Leukocyte Esterase 1+ H NEGATIVE Urine RBC (Auto) TRACE-I NEGATIVE Urine RBC 2-5 H /HPF Urine WBC 5-10 H /HPF Urine Squamous Epithelial Cells 10-25 H /HPF Urine Crystals NONE /LPF Urine Bacteria MODERATE H /HPF Urine Casts NONE /LPF Urine Mucus NEGATIVE /LPF Urine Culture Indicated YES Physical Exam: General - Alert and oriented, no apparent distress Abdomen - Soft, appropriately tender to palpation, non-distended, fundus firm at umbilicus Incision - clean, dry and intact; no erythema or induration, no drainage Extremities - no edema, negative Jeana's bilaterally [] Assessment: [] post-operative day # [], status post []. Recovering well, hemodynamically stable Acute blood loss anemia [] Plan: Routine post-operative care. Encourage breast feeding. Encourage ambulation. VTE prophylaxis: SCDs. Ferrous sulfate supplementation. Plan for discharge [] Vitals - Labs Vital Signs - I&O Vital Signs Date Time Temp Pulse Resp B/P (MAP) Pulse Ox O2 Delivery O2 Flow Rate FiO2 01/13/21 08:36 36.7 77 18 124/74 (91) 98 Room Air 01/13/21 04:00 36.4 94 18 120/69 (86) 98 01/12/21 20:20 36.5 93 18 118/67 (84) 98 01/12/21 18:15 36.5 90 18 120/76 (91) 98 Room Air 01/12/21 12:30 36.7 97 18 113/64 (80) Labs Microbiology 01/11/21 Urine Culture - Final, Complete Gram Pos Mixed Bacterial Avis GEORGE LONG DO January 13, 2021 08:40
[2021-01-13] MEDS ORDERED: OXC5T PO (08:43)
[2021-01-13] MEDS ORDERED: ACET-93 PO (08:43)
[2021-01-13] MEDS ORDERED: IBUP-844 PO (08:43)
[2021-01-13] MEDS ORDERED: DCS100C PO (08:43)
== END 2021-01-13 10:40 | disposition home or self-care (01) | DRG 787 ==
LOC: LDRP 10:54
PROVIDERS: ADMIT Obstetrics & Gynecology; ATTEND Obstetrics & Gynecology
PROC: 10D00Z1 Extraction of Products of Conception, Low, Open Approach (ICD-10-PCS; principal; 2021-01-11 12:19)
DX: O34.211 Maternal care for low transverse scar from previous cesarean delivery (principal); D62 Acute posthemorrhagic anemia; Z3A.39 39 weeks gestation of pregnancy; Z37.0 Single live birth; Z91.040 Latex allergy status; O90.81 Anemia of the puerperium
CPT/HCPCS: 36415; 81000; 85025; 86850; 86900; 86901; 87088; 94664

== ENCOUNTER 2021-02-03 20:23 | Emergency (ER) | payer MEDICAID ==
[~2021-02-03] VITALS: Ht 160 cm; Wt 89.6 kg
[~2021-02-03 20:23] MED LIST changes: +ACET-93 PO; +DCS100C PO; +IBUP-844 PO; +OXC5T PO
--- NOTE | 2021-02-03 20:34 | ED General ---
General Chief Complaint: General Problems/Pain Stated Complaint: BACK PAIN,CHEST PAIN,ABD PAIN History of Present Illness Date Seen by Provider: Feb 03, 2021 Time Seen by Provider: 20:34 Initial Comments 25-year-old female presents with epigastric pain that radiates up to her chest and into her right upper back. Patient reports that started since she had a child about 3 weeks ago by . That feels like acid is burning up to her throat. Gets worse if she lays down especially at night. Sometimes worse after she eats. She tried some Pepcid with minimal relief. She has been seen by her OB and by her primary care provider. She has a right upper quadrant ultrasound scheduled to check her gallbladder but comes in tonight because it seems to be worse. She occasionally gets some nausea with it. No vomiting. No other systemic complaints. Allergies and Home Medications Allergies Coded Allergies: No Known Drug Allergies (Unverified , 01/04/21) Home Medications Acetaminophen 500 Mg Tablet, 1,000 MG PO Q6HR Prescribed by: GEORGE LONG on 01/13/21 0843 Docusate Sodium 100 Mg Capsule, 100 MG PO BID Prescribed by: GEORGE LONG on 01/13/21 0843 Ibuprofen 600 Mg Tablet, 600 MG PO Q6H Prescribed by: GEORGE LONG on 01/13/21 0843 Oxycodone Hcl 5 Mg Tab, 5 MG PO Q4H PRN for PAIN-SEVERE (8-10) Prescribed by: GEORGE LONG on 01/13/21 0843 Vit W-Ca,Fe,FA(<1 mg) 1 Each Tablet, 1 EACH PO DAILY, (Reported) Patient Home Medication List Home Medication List Reviewed: Yes Review of Systems Review of Systems Constitutional: no symptoms reported EENTM: no symptoms reported Respiratory: no symptoms reported Cardiovascular: no symptoms reported Gastrointestinal: see HPI Musculoskeletal: no symptoms reported Skin: no symptoms reported Psychiatric/Neurological: No Symptoms Reported Hematologic/Lymphatic: No Symptoms Reported Past Xboewcr-Mfkizq-Xwifat Hx Past Med/Social Hx: Reviewed Nursing Past Med/Soc Hx Patient Social History 2nd Hand Smoke Exposure: No Recent Hopitalizations: No Immunizations Up To Date Tetanus Booster (TDap): Less than 5yrs PED Vaccines UTD: Yes Date of Influenza Vaccine: May 26, 2019 Seasonal Allergies Seasonal Allergies: No Past Medical History Surgeries: Yes Adenoidectomy, Section, Tonsillectomy Respiratory: No Currently Using CPAP: No Currently Using BIPAP: No Cardiac: No Neurological: No Genitourinary: No Gastrointestinal: No Musculoskeletal: No Endocrine: No HEENT: No Cancer: No Psychosocial: No Integumentary: No Blood Disorders: No Physical Exam Vital Signs Capillary Refill : Height, Weight, BMI Height: '" Weight: lbs. oz. kg; 38.16 BMI Method: General Appearance: No Apparent Distress, WD/WN Neck: Non Tender, Supple Respiratory: Lungs Clear, Normal Breath Sounds Cardiovascular: Regular Rate, Rhythm Gastrointestinal: Soft; No Distended, No Guarding, No Rebound; Tenderness (Epigastric) Back: Normal Inspection Extremity: Normal Capillary Refill, Normal Inspection Neurologic/Psychiatric: Alert, Oriented x3, Normal Mood/Affect Skin: Other ( incision clean dry and intact, well-healed) Progress/Results/Core Measures Suspected Sepsis SIRS Temperature: Pulse: Respiratory Rate: Laboratory Tests 02/03/21 21:02: White Blood Count 11.0 Blood Pressure / Mean: Laboratory Tests 02/03/21 21:02: Creatinine 0.84, Platelet Count 376, Total Bilirubin 0.5 Results/Orders Lab Results Laboratory Tests Test 02/03/21 21:02 Range/Units White Blood Count 11.0 4.3-11.0 10^3/uL Red Blood Count 5.07 4.35-5.85 10^6/uL Hemoglobin 13.2 11.5-16.0 G/DL Hematocrit 41 35-52 % Mean Corpuscular Volume 81 80-99 FL Mean Corpuscular Hemoglobin 26 25-34 PG Mean Corpuscular Hemoglobin Concent 32 32-36 G/DL Red Cell Distribution Width 13.2 10.0-14.5 % Platelet Count 376 130-400 10^3/uL Mean Platelet Volume 8.7 7.4-10.4 FL Immature Granulocyte % (Auto) 0 % Neutrophils (%) (Auto) 59 42-75 % Lymphocytes (%) (Auto) 33 12-44 % Monocytes (%) (Auto) 5 0-12 % Eosinophils (%) (Auto) 2 0-10 % Basophils (%) (Auto) 0 0-10 % Neutrophils # (Auto) 6.5 1.8-7.8 X 10^3 Lymphocytes # (Auto) 3.7 1.0-4.0 X 10^3 Monocytes # (Auto) 0.5 0.0-1.0 X 10^3 Eosinophils # (Auto) 0.2 0.0-0.3 10^3/uL Basophils # (Auto) 0.0 0.0-0.1 10^3/uL Immature Granulocyte # (Auto) 0.0 0.0-0.1 10^3/uL Sodium Level 142 135-145 MMOL/L Potassium Level 4.1 3.6-5.0 MMOL/L Chloride Level 102 98-107 MMOL/L Carbon Dioxide Level 25 21-32 MMOL/L Anion Gap 15 H 5-14 MMOL/L Blood Urea Nitrogen 9 7-18 MG/DL Creatinine 0.84 0.60-1.30 MG/DL Estimat Glomerular Filtration Rate > 60 BUN/Creatinine Ratio 11 Glucose Level 92 70-105 MG/DL Calcium Level 9.3 8.5-10.1 MG/DL Corrected Calcium 9.1 8.5-10.1 MG/DL Total Bilirubin 0.5 0.1-1.0 MG/DL Aspartate Amino Transf (AST/SGOT) 41 H 5-34 U/L Alanine Aminotransferase (ALT/SGPT) 30 0-55 U/L Alkaline Phosphatase 128 40-136 U/L C-Reactive Protein 0.31 <0.50 MG/DL Total Protein 7.0 6.4-8.2 GM/DL Albumin 4.2 3.2-4.5 GM/DL Lipase 70 8-78 U/L My Orders Orders - BERNIE IBARRA DO Acute Abd Series (02/03/21 20:39) Cbc With Automated Diff (02/03/21 20:39) Comprehensive Metabolic Panel (02/03/21 20:39) Lipase (02/03/21 20:39) Crp Fs (02/03/21 20:39) Ondansetron Injection (Zofran Injectio (02/03/21 20:45) Famotidine Injection (Pepcid Injection) (02/03/21 20:39) Ed Iv/Invasive Line Start (02/03/21 20:39) Medications Given in ED Current Medications Medications Dose Ordered Sig/Keren Route Start Time Stop Time Status Last Admin Dose Admin Ondansetron HCl 4 mg ONCE ONCE IVP 6/11/21 20:45 02/03/21 20:46 DC 02/03/21 21:18 4 MG Vital Signs/I&O Capillary Refill : Progress Note : Progress Note Patient symptoms are consistent with severe gastritis/reflux. I recommend she add the Prilosec in addition to her daily Pepcid. She should follow-up with her primary care provider in about a week to recheck her symptoms. Patient does have some moderate stool on x-ray that I discussed with her. Recommend she use MiraLAX if she has any issues with constipation. Patient is stable and discharged home Diagnostic Imaging Diagonstic Imaging: Xray Plain Films/CT/US/NM/MRI: abdomen Comments ACUTE ABD SERIES INDICATION: Epigastric and upper back pain, 3 weeks post . FINDINGS: Upright view of the chest demonstrates the lungs to be clear. The heart, mediastinum and pulmonary vascularity are normal. Supine and upright views of the abdomen demonstrates an approximately 5 mm stone overlying the lower pole of the left kidney. Bowel gas pattern demonstrates moderately increased stool. Small bowel gas pattern is normal. IMPRESSION: 1. There is a calculi overlying the lower pole of the left kidney. 2. There is moderately increased stool in the colon. Departure Impression Primary Impression: GERD (gastroesophageal reflux disease) Qualified Codes: K21.9 - Gastro-esophageal reflux disease without esophagitis Disposition: 01 HOME, SELF-CARE Condition: Stable Departure-Patient Inst. Referrals: ELISHA FOY MD (PCP/Family) Primary Care Physician Patient Instructions: Acid Reflux and GERD in Adults (DC), Acid Reflux (Gastroesophageal Reflux Disease) During Add. Discharge Instructions: Add Prilosec [id number] as directed on package Continue your Pepcid daily All discharge instructions reviewed with patient and/or family. Voiced understanding. BERNIE IBARRA DO Feb 03, 2021 20:34
[2021-02-03] MEDS ORDERED: FAMOTIDINE 20MG/2ML IV (PEPCID) IV STA (20:39)
[2021-02-03] MEDS ORDERED: ONDANSETRON 4 MG/2 ML (SDV) Z0FRAN IVP ONE (20:45)
--- NOTE | 2021-02-03 21:06 | Diagnostic Imaging Report ---
INDICATION: Epigastric and upper back pain, 3 weeks post . FINDINGS: Upright view of the chest demonstrates the lungs to be clear. The heart, mediastinum and pulmonary vascularity are normal. Supine and upright views of the abdomen demonstrates an approximately 5 mm stone overlying the lower pole of the left kidney. Bowel gas pattern demonstrates moderately increased stool. Small bowel gas pattern is normal. IMPRESSION: 1. There is a calculi overlying the lower pole of the left kidney. 2. There is moderately increased stool in the colon. Dictated by: Dictated on workstation # [id number]
[2021-02-03 21:15] LABS: BASOPHILS % (AUTO) 0 % (0-10); EOSINOPHILS # (AUTO) 0.2 10^3/uL (0.0-0.3); EOSINOPHILS % (AUTO) 2 % (0-10); HEMATOCRIT 41 % (35-52); HEMOGLOBIN 13.2 G/DL (11.5-16.0); LYMPHOCYTES # (AUTO) 3.7 X 10^3 (1.0-4.0); LYMPHOCYTES % (AUTO) 33 % (12-44); MEAN CORPUSCULAR HEMOGLOBIN 26 PG (25-34); MEAN CORPUSCULAR HGB CONC 32 G/DL (32-36); MEAN CORPUSCULAR VOLUME 81 FL (80-99); MEAN PLATELET VOLUME 8.7 FL (7.4-10.4); MONOCYTES # (AUTO) 0.5 X 10^3 (0.0-1.0); MONOCYTES % (AUTO) 5 % (0-12); NEUTROPHILS # (AUTO) 6.5 X 10^3 (1.8-7.8); NEUTROPHILS % (AUTO) 59 % (42-75); PLATELET COUNT 376 10^3/uL (130-400)
[2021-02-03 21:37] LABS: POTASSIUM 4.1 MMOL/L (3.6-5.0); SODIUM 142 MMOL/L (135-145)
[2021-02-03 21:38] LABS: ALANINE AMINOTRANSFERASE 30 U/L (0-55); ALBUMIN 4.2 GM/DL (3.2-4.5); ALKALINE PHOSPHATASE 128 U/L (40-136); BILIRUBIN,TOTAL 0.5 MG/DL (0.1-1.0); BUN/CREATININE RATIO 11; CALCIUM 9.3 MG/DL (8.5-10.1); CARBON DIOXIDE 25 MMOL/L (21-32); CHLORIDE 102 MMOL/L (98-107); CREATININE SERUM 0.84 MG/DL (0.60-1.30); GFR ESTIMATED > 60; GLUCOSE 92 MG/DL (70-105); LIPASE 70 U/L (8-78)
[2021-02-03 21:57] VITALS: BP 107/67
== END 2021-02-03 21:57 | disposition home or self-care (01) ==
LOC: EDUNIT# 20:23 → ER FS 20:25
DX: K21.9 Gastro-esophageal reflux disease without esophagitis (principal)
CPT/HCPCS: 36415; 74022; 80053; 83690; 85025; 86141

== ENCOUNTER → 2021-02-09 | Outpatient (CLI) | payer MEDICAID ==
--- NOTE | 2021-02-09 10:56 | Diagnostic Imaging Report ---
PROCEDURE: US Abdomen, limited. TECHNIQUE: Multiple realtime grayscale images were obtained over the abdomen in various projections. INDICATION: Right upper quadrant pain. Liver is upper limits of normal in size at 18 cm. No discrete liver mass is identified. The portal vein is patent and shows normal direction of flow. Gallbladder contains multiple shadowing foci consistent with stones. No wall thickening or biliary ductal dilatation is seen. Pancreas is unremarkable. Aorta is nonaneurysmal. IVC is patent. Right kidney is without calculi or hydronephrosis. There is no ascites. IMPRESSION: 1. Cholelithiasis without evidence of acute cholecystitis. Dictated by: Dictated on workstation # [id number]
== END ==
LOC: RAD FS 09:38
PROVIDERS: ATTEND Family Medicine
DX: K80.20 Calculus of gallbladder without cholecystitis without obstruction (principal)
CPT/HCPCS: 76705

== ENCOUNTER → 2021-03-03 | Outpatient (CLI) | payer MEDICAID ==
[2021-03-03 11:29] LABS: ALANINE AMINOTRANSFERASE 39 U/L (0-55); ALBUMIN 4.4 GM/DL (3.2-4.5); ALKALINE PHOSPHATASE 107 U/L (40-136); BILIRUBIN,TOTAL 0.3 MG/DL (0.1-1.0); BUN/CREATININE RATIO 10; CARBON DIOXIDE 27 MMOL/L (21-32); CHLORIDE 101 MMOL/L (98-107); CREATININE SERUM 0.84 MG/DL (0.60-1.30); GFR ESTIMATED > 60; GLUCOSE 92 MG/DL (70-105); POTASSIUM 4.7 MMOL/L (3.6-5.0); SODIUM 139 MMOL/L (135-145); TOTAL PROTEIN 7.3 GM/DL (6.4-8.2)
[2021-03-03 15:06] LABS: TRIGLYCERIDES 135 MG/DL (<150); VLDL CHOLESTEROL 27 MG/DL (5-40)
[2021-03-03 15:10] LABS: CHOLESTEROL 170 MG/DL (< 200)
[2021-03-03 15:11] LABS: HDL CHOLESTEROL 52 MG/DL (40-60)
== END ==
LOC: LAB FS 09:22
PROVIDERS: ATTEND Family Medicine
DX: Z00.00 Encounter for general adult medical examination without abnormal findings (principal)
CPT/HCPCS: 36415; 80053; 80061; 84443

== ENCOUNTER 2021-03-09 23:32 | Emergency (ER) | payer MEDICAID ==
[~2021-03-09] VITALS: Ht 160 cm; Wt 90.9 kg
--- NOTE | 2021-03-09 23:37 | ED GI ---
General Stated Complaint: lower abdominal pain History of Present Illness Date Seen by Provider: Mar 09, 2021 Time Seen by Provider: 23:37 Initial Comments 25-year-old female presents with abdominal pain that began tonight with associated nausea without vomiting 4 times. History of present illness- patient has known gallbladder disease and is scheduled to have a cholecystectomy in [facility] 4 days from now next Saturday. She states that she is taking antacids and watching what she eats, but everything seems to make it worse. Tonight did not eat anything unusual. No fever or chills. Pain is epigastric and radiates to both right and left sides. No lower abdominal pain or discomfort. Allergies and Home Medications Allergies Coded Allergies: No Known Drug Allergies (Unverified , 01/04/21) Home Medications Acetaminophen 500 Mg Tablet, 1,000 MG PO Q6HR Prescribed by: GEORGE LONG on 01/13/21 0843 Docusate Sodium 100 Mg Capsule, 100 MG PO BID Prescribed by: GEORGE LONG on 01/13/21 0843 Ibuprofen 600 Mg Tablet, 600 MG PO Q6H Prescribed by: GEORGE LONG on 01/13/21 0843 Oxycodone Hcl 5 Mg Tab, 5 MG PO Q4H PRN for PAIN-SEVERE (8-10) Prescribed by: GEORGE LONG on 01/13/21 0843 Vit W-Ca,Fe,FA(<1 mg) 1 Each Tablet, 1 EACH PO DAILY, (Reported) Patient Home Medication List Home Medication List Reviewed: Yes Review of Systems Review of Systems Constitutional: No dizziness, No fever, No malaise, No weakness Respiratory: Denies Cough, Denies Shortness of Air Cardiovascular: Denies Chest Pain, Denies Edema, Denies Lightheadedness Gastrointestinal: Abdominal Pain; Denies Constipated, Denies Diarrhea; Nausea, Poor Appetite; Denies Poor Fluid Intake, Denies Vomiting Genitourinary: No Symptoms Reported; Denies Drainage, Denies Frequency, Denies Flank Pain, Denies Hematuria Skin: No change in color, No rash Past Ncwwgxf-Ymkfdc-Wfpage Hx Patient Social History Tobacco Use?: No Immunizations Up To Date Tetanus Booster (TDap): Less than 5yrs PED Vaccines UTD: Yes Seasonal Allergies Seasonal Allergies: No Past Medical History Surgeries: Yes Adenoidectomy, Section, Tonsillectomy Respiratory: No Currently Using CPAP: No Currently Using BIPAP: No Cardiac: No Neurological: No Genitourinary: No Gastrointestinal: No Musculoskeletal: No Endocrine: No HEENT: No Cancer: No Psychosocial: No Integumentary: No Blood Disorders: No Physical Exam Vital Signs Vital Signs - First Documented 03/09/21 23:37 Temp 36.4 Pulse 70 Resp 16 B/P (MAP) 91/50 (64) Pulse Ox 100 O2 Delivery Room Air Capillary Refill : Height/Weight/BMI Height: '" Weight: lbs. oz. kg; 35.00 BMI Method: General Appearance: WD/WN, no apparent distress Respiratory: chest non-tender, lungs clear, normal breath sounds, no respiratory distress, no accessory muscle use Cardiovascular: regular rate, rhythm, no edema, no JVD Gastrointestinal: soft, no pulsatile mass; No distended, No guarding, No rebound; tenderness (epigastric); No hernia, No mass, No hepatomegaly Extremities: non-tender, no pedal edema Back: normal inspection, no CVA tenderness Progress/Results/Core Measures Results/Orders Lab Results Laboratory Tests Test 03/09/21 23:47 03/09/21 23:55 Range/Units Urine Color YELLOW Urine Clarity CLEAR Urine pH 5.5 5-9 Urine Specific [place] 1.025 H 1.016-1.022 Urine Protein NEGATIVE NEGATIVE Urine Glucose (UA) NEGATIVE NEGATIVE Urine Ketones NEGATIVE NEGATIVE Urine Nitrite NEGATIVE NEGATIVE Urine Bilirubin NEGATIVE NEGATIVE Urine Urobilinogen 0.2 < = 1.0 MG/DL Urine Leukocyte Esterase NEGATIVE NEGATIVE Urine RBC (Auto) NEGATIVE NEGATIVE Urine RBC 0-2 /HPF Urine WBC 0-2 /HPF Urine Squamous Epithelial Cells 2-5 /HPF Urine Crystals NONE /LPF Urine Bacteria FEW H /HPF Urine Casts PRESENT /LPF Urine Hyaline Casts RARE /LPF Urine Mucus MODERATE H /LPF Urine Culture Indicated NO Urine Test NEGATIVE NEGATIVE White Blood Count 14.3 H 4.3-11.0 10^3/uL Red Blood Count 4.82 4.35-5.85 10^6/uL Hemoglobin 12.5 11.5-16.0 G/DL Hematocrit 40 35-52 % Mean Corpuscular Volume 82 80-99 FL Mean Corpuscular Hemoglobin 26 25-34 PG Mean Corpuscular Hemoglobin Concent 32 32-36 G/DL Red Cell Distribution Width 14.6 H 10.0-14.5 % Platelet Count 391 130-400 10^3/uL Mean Platelet Volume 8.6 7.4-10.4 FL Immature Granulocyte % (Auto) 0 % Neutrophils (%) (Auto) 63 42-75 % Lymphocytes (%) (Auto) 31 12-44 % Monocytes (%) (Auto) 4 0-12 % Eosinophils (%) (Auto) 2 0-10 % Basophils (%) (Auto) 0 0-10 % Neutrophils # (Auto) 9.0 H 1.8-7.8 X 10^3 Lymphocytes # (Auto) 4.5 H 1.0-4.0 X 10^3 Monocytes # (Auto) 0.5 0.0-1.0 X 10^3 Eosinophils # (Auto) 0.3 0.0-0.3 10^3/uL Basophils # (Auto) 0.0 0.0-0.1 10^3/uL Immature Granulocyte # (Auto) 0.0 0.0-0.1 10^3/uL Neutrophils % (Manual) 59 % Lymphocytes % (Manual) 36 % Monocytes % (Manual) 2 % Band Neutrophils 1 % Atypical Lymphocytes 2 % Toxic Granulation 2+ Platelet Estimate ADEQUATE Blood Morphology Comment NORMAL My Orders Orders - ROVENSTINE,PEYTON L DO Urinalysis (03/09/21 23:36) Hcg,Qualitative Urine (03/09/21 23:36) Cbc With Automated Diff (03/09/21 23:43) Comprehensive Metabolic Panel (03/09/21 23:43) Ed Iv/Invasive Line Start (03/09/21 23:43) Ondansetron Injection (Zofran Injectio (03/09/21 23:45) Ketorolac Injection (Toradol Injection) (03/09/21 23:45) Ns Iv 1000 Ml (Sodium Chloride 0.9%) (03/09/21 23:45) Abdomen Flat & Upright/Decub (03/09/21 23:53) Manual Differential (03/09/21 23:55) Medications Given in ED Current Medications Medications Dose Ordered Sig/Keren Route Start Time Stop Time Status Last Admin Dose Admin Ketorolac Tromethamine 30 mg ONCE ONCE IVP 03/09/21 23:45 03/09/21 23:46 DC 03/09/21 23:57 30 MG Ondansetron HCl 4 mg ONCE ONCE IVP 03/09/21 23:45 03/09/21 23:46 DC 03/09/21 23:55 4 MG Vital Signs/I&O 03/09/21 23:37 Temp 36.4 Pulse 70 Resp 16 B/P (MAP) 91/50 (64) Pulse Ox 100 O2 Delivery Room Air Progress Progress Note : Time: 00:25 Progress Note feeling much better, pain and nausea resolved. Finishing IVF. Discussed labs and x-ray findings, pt advised to call her surgeon this morning when office opens to let them know of tonights attack and to see if she could be scheduled for surgery earlier. Advised to stay NPO until she talks to them. Departure Impression Primary Impression: Abdominal pain Qualified Codes: R10.13 - Epigastric pain Disposition: 01 HOME, SELF-CARE Condition: Improved Departure-Patient Inst. Decision time for Depature: 00:26 Referrals: ELISHA FOY MD (PCP/Family) Primary Care Physician Patient Instructions: Gallstones (DC) Add. Discharge Instructions: see Dr Foy in ___ days Scripts Ondansetron (Ondansetron Odt) 4 Mg Tab.rapdis 4 MG PO TID for Nausea, #10 TAB Prov: PEYTON MILLER DO 03/10/21 Ibuprofen (Ibuprofen) 800 Mg Tablet 800 MG PO Q8H PRN for PAIN, #30 TAB 0 Refills Prov: PEYTON MILLER DO 03/10/21 PEYTON MILLER DO Mar 09, 2021 23:37
[2021-03-09] MEDS ORDERED: KETOROLAC 30 MG/ML VIAL IVP ONE (23:45)
[2021-03-09] MEDS ORDERED: ONDANSETRON 4 MG/2 ML (SDV) Z0FRAN IVP ONE (23:45)
[2021-03-09] MEDS ORDERED: NS IV 1000 ML 1,000 ML IV SCH (23:45)
[2021-03-09 23:56] LABS: BILIRUBIN,URINE NEGATIVE (NEGATIVE); COLOR,URINE YELLOW; GLUCOSE, URINE (UA) NEGATIVE (NEGATIVE); KETONES,URINE NEGATIVE (NEGATIVE); LEUKOCYTE ESTERASE ,URINE NEGATIVE (NEGATIVE); NITRITE,URINE NEGATIVE (NEGATIVE); PH,URINE 5.5 (5-9); PROTEIN,URINE NEGATIVE (NEGATIVE)
[2021-03-10 00:04] LABS: BASOPHILS % (AUTO) 0 % (0-10); EOSINOPHILS # (AUTO) 0.3 10^3/uL (0.0-0.3); EOSINOPHILS % (AUTO) 2 % (0-10); HEMATOCRIT 40 % (35-52); HEMOGLOBIN 12.5 G/DL (11.5-16.0); LYMPHOCYTES # (AUTO) 4.5 X 10^3 (1.0-4.0); LYMPHOCYTES % (AUTO) 31 % (12-44); MEAN CORPUSCULAR HEMOGLOBIN 26 PG (25-34); MEAN CORPUSCULAR HGB CONC 32 G/DL (32-36); MEAN CORPUSCULAR VOLUME 82 FL (80-99); MEAN PLATELET VOLUME 8.6 FL (7.4-10.4); MONOCYTES # (AUTO) 0.5 X 10^3 (0.0-1.0); MONOCYTES % (AUTO) 4 % (0-12); NEUTROPHILS % (AUTO) 63 % (42-75); PLATELET COUNT 391 10^3/uL (130-400); WHITE BLOOD COUNT 14.3 10^3/uL (4.3-11.0)
[2021-03-10 00:18] LABS: BACTERIA,URINE FEW /HPF; RBC,URINE 0-2 /HPF; WBC,URINE 0-2 /HPF
[2021-03-10 00:19] LABS: HYALINE CASTS, URINE RARE /LPF
[2021-03-10 00:20] LABS: NEUTROPHILS % (MANUAL) 59 %
[2021-03-10 00:20] LABS: CLARITY,URINE CLEAR
[2021-03-10 00:21] LABS: ATYPICAL LYMPHOCYTES 2 %; BAND NEUTROPHILS 1 %; LYMPHOCYTES % (MANUAL) 36 %; MONOCYTES % (MANUAL) 2 %; PLATELET ESTIMATE ADEQUATE; RBC MORPH NORMAL; TOXIC GRANULATION/VACUOLAZATIO 2+
[2021-03-10 00:24] LABS: ALANINE AMINOTRANSFERASE 32 U/L (0-55); ALKALINE PHOSPHATASE 99 U/L (40-136); BILIRUBIN,TOTAL 0.3 MG/DL (0.1-1.0); BUN/CREATININE RATIO 17; CARBON DIOXIDE 22 MMOL/L (21-32); CHLORIDE 102 MMOL/L (98-107); CREATININE SERUM 0.84 MG/DL (0.60-1.30); GFR ESTIMATED > 60; GLUCOSE 125 MG/DL (70-105); POTASSIUM 3.7 MMOL/L (3.6-5.0); SODIUM 139 MMOL/L (135-145); TOTAL PROTEIN 6.9 GM/DL (6.4-8.2)
[2021-03-10 00:25] LABS: ALBUMIN 4.3 GM/DL (3.2-4.5)
[2021-03-10] MEDS ORDERED: ONDA4TAB11 PO (00:27)
[2021-03-10] MEDS ORDERED: IBUP-1780 PO (00:27)
[2021-03-10 01:23] VITALS: BP 106/68
--- NOTE | 2021-03-10 06:55 | Diagnostic Imaging Report ---
INDICATION: epigastric pain, Hx cholelithiasis. TECHNIQUE: Supine and upright view of the abdomen 12:06 AM CORRELATION STUDY: None FINDINGS: Imaging of the abdomen demonstrates the bowel gas pattern to be unremarkable and without evidence for obstruction. Mild stool retention throughout the colon. No fecal impaction. No significant differential air-fluid levels. No evidence for free air. No pathologic intraabdominal calcifications. IMPRESSION: 1. Non-obstructed bowel gas pattern. Dictated by: Dictated on workstation # [id number]
== END 2021-03-10 01:32 | disposition home or self-care (01) ==
LOC: EDUNIT# 23:32 → ER FS 23:35
DX: R10.13 Epigastric pain (principal); Z90.49 Acquired absence of other specified parts of digestive tract
CPT/HCPCS: 36415; 74019; 80053; 81000; 84703; 85007; 85027

== ENCOUNTER → 2021-04-24 | Outpatient (CLI) | payer MEDICAID ==
[~2021-04-24] MED LIST changes: +IBUP-1780 PO; +ONDA4TAB11 PO
[2021-04-24 15:54] LABS: POTASSIUM 4.2 MMOL/L (3.6-5.0)
[2021-04-24 15:55] LABS: CALCIUM 9.6 MG/DL (8.5-10.1); CREATININE SERUM 0.9 MG/DL (0.60-1.30)
== END ==
LOC: LAB FS 15:15
PROVIDERS: ATTEND Family Medicine
DX: L70.9 Acne, unspecified (principal)
CPT/HCPCS: 36415; 80048; 84270; 84402

== ENCOUNTER → 2021-11-07 | Outpatient (CLI) | payer MEDICAID ==
[~2021-11-07] MED LIST changes: -DCS100C PO; +DOCU-239 PO
--- NOTE | 2021-11-07 12:21 | Diagnostic Imaging Report ---
EXAMINATION: CT abdomen and pelvis without contrast. TECHNIQUE: Multiple contiguous axial images were obtained through the abdomen and pelvis without the use of intravenous contrast. All CT scans use one or more of the following dose optimizing techniques: automated exposure control, MA and/or KvP adjustment based on patient size and exam type or iterative reconstruction. HISTORY: Left flank pain. COMPARISON: None available. FINDINGS: Limited views of the lower thorax are unremarkable. The liver is normal without focal lesion. There is no biliary ductal dilation. Gallbladder is surgically absent. Pancreas is normal. Spleen is normal. Adrenal glands are normal. There is mild left-sided hydronephrosis due to a 3 mm stone in the proximal left ureter. Urinary bladder is normal. Bowel is normal in caliber without obstruction or inflammation. No free fluid or air. No abdominal or pelvic lymphadenopathy. Aorta is normal in caliber without aneurysm. There are no suspicious osseous lesions. IMPRESSION: 1. Mild left hydroureteronephrosis due to 3 mm stone in the proximal left ureter. Dictated by: Dictated on workstation # [id number]
== END ==
LOC: RAD FS 11:55
PROVIDERS: ATTEND Registered Nurse Emergency
DX: N13.30 Unspecified hydronephrosis (principal); N20.1 Calculus of ureter
CPT/HCPCS: 74176

== ENCOUNTER → 2022-03-21 | Outpatient (CLI) | payer MEDICAID ==
[2022-03-21 10:12] LABS: BASOPHILS % (AUTO) 0 % (0-10); EOSINOPHILS # (AUTO) 0.2 10^3/uL (0.0-0.3); EOSINOPHILS % (AUTO) 2 % (0-10); HEMATOCRIT 40 % (35-52); HEMOGLOBIN 13.3 g/dL (11.5-16.0); LYMPHOCYTES # (AUTO) 1.9 10^3/uL (1.0-4.0); LYMPHOCYTES % (AUTO) 26 % (12-44); MEAN CORPUSCULAR HEMOGLOBIN 27 pg (25-34); MEAN CORPUSCULAR HGB CONC 33 g/dL (32-36); MEAN CORPUSCULAR VOLUME 82 fL (80-99); MEAN PLATELET VOLUME 9.2 fL (9.0-12.2); MONOCYTES # (AUTO) 0.3 10^3/uL (0.0-1.0); MONOCYTES % (AUTO) 4 % (0-12); NEUTROPHILS % (AUTO) 67 % (42-75); PLATELET COUNT 281 10^3/uL (130-400); WHITE BLOOD COUNT 7.5 10^3/uL (4.3-11.0)
[2022-03-21 10:38] LABS: ALANINE AMINOTRANSFERASE 40 U/L (0-55); ALBUMIN 4.4 GM/DL (3.2-4.5); ALKALINE PHOSPHATASE 82 U/L (40-136); BILIRUBIN,TOTAL 0.3 MG/DL (0.1-1.0); BUN/CREATININE RATIO 13; CALCIUM 9.3 MG/DL (8.5-10.1); CARBON DIOXIDE 25 MMOL/L (21-32); CHLORIDE 102 MMOL/L (98-107); CREATININE SERUM 0.78 MG/DL (0.60-1.30); GFR ESTIMATED 106; GLUCOSE 88 MG/DL (70-105); POTASSIUM 4.6 MMOL/L (3.6-5.0); SODIUM 137 MMOL/L (135-145); TOTAL PROTEIN 7.6 GM/DL (6.4-8.2)
--- NOTE | 2022-03-21 11:18 | Diagnostic Imaging Report ---
INDICATION: Dyspnea with exertion. EXAMINATION: Two-view chest 03/21/2022 COMPARISON: 02/12/2020 FINDINGS: The cardiomediastinal silhouette is unremarkable. The pulmonary vasculature is within normal limits. The lungs and pleural spaces are clear. IMPRESSION: No evidence of an acute cardiopulmonary process. Dictated by: Dictated on workstation # [id number]
== END ==
LOC: LAB FS 09:52
PROVIDERS: ATTEND Registered Nurse Emergency
DX: R06.09 Other forms of dyspnea (principal)
CPT/HCPCS: 36415; 71046; 80053; 84484; 85025

== ENCOUNTER → 2022-06-05 | Outpatient (CLI) | payer MEDICAID ==
[2022-06-05 11:11] LABS: ALBUMIN 3.9 GM/DL (3.2-4.5); BILIRUBIN,TOTAL 0.3 MG/DL (0.1-1.0); CALCIUM 9.2 MG/DL (8.5-10.1); CREATININE SERUM 0.71 MG/DL (0.60-1.30); POTASSIUM 4.7 MMOL/L (3.6-5.0); TOTAL PROTEIN 7.3 GM/DL (6.4-8.2)
[2022-06-05 15:10] LABS: FREE T4 (FREE THYROXINE) 0.97 NG/DL (0.70-1.48)
== END ==
LOC: LAB FS 08:01
PROVIDERS: ATTEND Family Medicine
DX: E78.5 Hyperlipidemia, unspecified (principal); E66.01 Morbid (severe) obesity due to excess calories; E28.1 Androgen excess; R63.5 Abnormal weight gain
CPT/HCPCS: 36415; 80053; 80061; 83036; 84270; 84402; 84439; 84443

== ENCOUNTER → 2022-06-22 | Outpatient (CLI) | payer MEDICAID | LOC: FS 17:05 | PROVIDERS: ATTEND Family Medicine | DX: U07.1 COVID-19 (principal) | CPT/HCPCS: 87636 ==

== ENCOUNTER → 2022-06-30 | Outpatient (CLI) | payer MEDICAID ==
--- NOTE | 2022-06-30 09:44 | Diagnostic Imaging Report ---
EXAMINATION: Chest 2 view HISTORY: Short of breath. COMPARISON: 03/21/2022 FINDINGS: The lungs are clear without edema or pneumonia. No pleural effusion or pneumothorax. Heart size is normal. IMPRESSION: 1. Clear lungs. Dictated by: Dictated on workstation # [id number]
== END ==
LOC: RAD FS 09:22
PROVIDERS: ATTEND Family Medicine
DX: R06.00 Dyspnea, unspecified (principal); R06.02 Shortness of breath
CPT/HCPCS: 71046

== ENCOUNTER → 2023-02-04 | Outpatient (CLI) | payer MEDICAID ==
[2023-02-04 16:09] LABS: HEMATOCRIT 43 % (35-52); HEMOGLOBIN 13.9 g/dL (11.5-16.0); MEAN CORPUSCULAR HEMOGLOBIN 26 pg (25-34); MEAN CORPUSCULAR HGB CONC 33 g/dL (32-36); MEAN CORPUSCULAR VOLUME 80 fL (80-99); PLATELET COUNT 376 10^3/uL (130-400); WHITE BLOOD COUNT 11.7 10^3/uL (4.3-11.0)
== END ==
LOC: LAB FS 15:52
PROVIDERS: ATTEND Obstetrics & Gynecology
DX: N93.9 Abnormal uterine and vaginal bleeding, unspecified (principal)
CPT/HCPCS: 36415; 85027